=== PATIENT | female | born 1945 | race Two or more races ===

== ENCOUNTER 2017-07-14 06:19 | Day surgery (SDC) | payer OTHER ==
[~2017-07-14] VITALS: Ht 162.6 cm; Wt 53.5 kg
[2017-07-14] VITALS (12 sets, daily range): BP systolic 102–124; BP diastolic 42–76
[~2017-07-14 06:19] MED LIST: LEVOTHYROXINE75 MCG ORAL
[2017-07-14] MEDS ORDERED: NS Irrig 4000ml IRRIG ONE (06:20)
[2017-07-14] MEDS ORDERED: fentaNYL 100 mcg/2 mL IV ONE (06:20)
[2017-07-14] MEDS ORDERED: Sterile Water Irrig 1000ml IRRIG ONE (06:20)
[2017-07-14] MEDS ORDERED: Midazolam 2mg/2ml Inj ONE (06:20)
[2017-07-14] MEDS ORDERED: NS Irrig 1000ml ONE (06:20)
[2017-07-14] MEDS ORDERED: Propofol 200mg/20ml IV ONE (06:20)
[2017-07-14] MEDS ORDERED: celeBREX 200mg Cap **SURGERY PATIENTS ONLY ORAL ONE (08:00)
[2017-07-14] MEDS ORDERED: ceFAZolin 1 GM premix IV ONE (08:00)
[2017-07-14] MEDS ORDERED: oxyCONTIN 20mg tab ORAL ONE (08:00)
--- NOTE | 2017-07-14 08:37 | Pre-Procedure Note/Attestation ---
Pre-Procedure Note/Attestation Complete Prior to Procedure Planned Procedure: left Procedure Narrative: knee diagnostic arthroscopy, possible menisectomy, possible synovectomy Indications for Procedure Pre-Operative Diagnosis: left knee internal derangement Attestation I attest that I discussed the nature of the procedure; its benefits; risks and complications; and alternatives (and the risks and benefits of such alternatives ), prior to the procedure, with the patient (or the patient's legal corporate sales representative). I attest that, if there was a reasonable possibility of needing a blood transfusion, the patient (or the patient's legal corporate sales representative) was given the [facility] standardized written summary, pursuant to the Endy Sara Blood Safety Act ([place] Health and Safety Code # 1645, as amended). I attest that I re-evaluated the patient just prior to the surgery and that there has been no change in the patient's H&P, except as documented below: MONTSERRAT CUEVAS Jul 14, 2017 08:37
[2017-07-14] MEDS ORDERED: Ketorolac 30mg Inj ONE (08:38)
[2017-07-14] MEDS ORDERED: Kenalog-40 1ml Vial ONE (08:38)
[2017-07-14] MEDS ORDERED: Morphine Sulfate PF 10 ML ONE (08:38)
--- NOTE | 2017-07-14 08:38 | Operative Note - PDOC ---
Operative Note Operative Note Pre-op Diagnosis: left knee internal derangement Procedure: left knee arhroscopy, synovectomy, medial menisectomy Post-op Diagnosis: same as pre-op plus Operative Findings: consistent w/pre-op dx studies Anesthesia: MAC Specimen: none Complications: none Condition: stable Estimated Blood Loss: none Implant(s) used?: No MONTSERRAT CUEVAS Jul 14, 2017 08:38
[2017-07-14] MEDS ORDERED: Bupivacaine 0.25% Inj 30ml INJ ONE (08:39)
[2017-07-14] MEDS ORDERED: Lidocaine 1% 10mg/ml/Epi 0.005mg/ml 30ml vial INJ ONE (08:39)
[2017-07-14] MEDS ORDERED: Norco 5mg/325mg tab ORAL PRN (08:45)
[2017-07-14] MEDS ORDERED: Tylenol #3 tab (300mg/30mg) ORAL PRN (08:45)
[2017-07-14] MEDS ORDERED: HYDROmorphone 1mg/ml Carpuject SUBQ PRN (08:45)
[2017-07-14] MEDS ORDERED: D5 1/2NS 1,000 ML IV SCH (08:45)
[2017-07-14] MEDS ORDERED: Duramorph PF 10mg/10ml amp IV ONE (08:55)
--- NOTE | 2017-07-14 09:40 | Anethesia Preoperative Eval ---
Anesthesia Pre-op PMH/ROS General Date of Evaluation: Jul 14, 2017 Time of Evaluation: 08:55 Anesthesiologist: Gabriela ASA Score: ASA 2 Mallampati Score Class I : Soft palate, uvula, fauces, pillars visible Class II: Soft palate, uvula, fauces visible Class III: Soft palate, base of uvula visible Class IV: Only hard plate visible Mallampati Classification: Class II Surgeon: Kenny Diagnosis: L knee pain Surgical Procedure: L knee scope Anesthesia History: none Family History: no anesthesia problems Allergies: Coded Allergies: No Known Allergies (Unverified , 07/14/17) Medications: see eMAR Past Medical History Cardiovascular: Denies: HTN, CAD, [place], valve dz, arrhythmia, other Pulmonary: Denies: asthma, COPD, SHAMEKA, other Gastrointestinal/Genitourinary: Reports: GERD - mild, Denies: CRI, ESRD, other Neurologic/Psychiatric: Denies: dementia, CVA, depression/anxiety, TIA, other Endocrine: Reports: hypothyroidism, Denies: DM, steroids, other HEENT: Denies: cataract (L), cataract (R), glaucoma, VIEJAS (L), VIEJAS (R), other Hematology/Immune: Denies: anemia, DVT, bleeding disorder, other Musculoskeletal/Integumentary: Denies: OA, RA, DJD, DDD, edema, other PMH Narrative: as above PSxH Narrative: none Anesthesia Pre-op Phys. Exam Physician Exam Last Vital Signs Date Time Temp Pulse Resp B/P (MAP) Pulse Ox O2 Delivery O2 Flow Rate FiO2 07/14/17 06:51 98.0 61 17 121/69 98 Room Air Constitutional: NAD Neurologic: CN 2-12 intact Cardiovascular: RRR, no M/R/G Respiratory: CTA Gastrointestinal: S/NT/ND Airway Exam Mallampati Score: Class II MO: full Neck: flexible ROM: full Teeth: intact Dentures: no upper, no lower Anesthesia Pre-op A/P Labs see chart Studies Pre-op Studies: EKG - NSR Risk Assessment & Plan Assessment: ASA 2 Plan: GA with LMA Status Change Before Surgery: No Pre-Antibiotics Drug: Ancef 1 gr. Given Within 1 Hr of Incision: Yes Time Given: 09:20 MILO WING M.D. Jul 14, 2017 09:40
[2017-07-14] MEDS ORDERED: LR 1000ml 1,000 ML IVLG SCH (09:55)
--- NOTE | 2017-07-14 09:55 | Immediate Post-Op Evaluation ---
Immediate Post-Op Evalulation Immediate Post-Op Evalulation Procedure: L knee arthroscopy meniscectomy Date of Evaluation: Jul 14, 2017 Time of Evaluation: 09:54 IV Fluids: 1000 Blood Products: none Estimated Blood Loss: min Urinary Output: none Blood Pressure Systolic: 119 Blood Pressure Diastolic: 58 Pulse Rate: 69 Respiratory Rate: 20 O2 Sat by Pulse Oximetry: 99 Temperature (Fahrenheit): 97.6 Pain Score (1-10): 2 Nausea: No Vomiting: No Complications none Patient Status: awake, patent, none Hydration Status: adequate MILO WING M.D. Jul 14, 2017 09:55
[2017-07-14] MEDS ORDERED: Ketorolac 30mg Inj IV PRN (10:00)
[2017-07-14] MEDS ORDERED: DiphenhydrAMINE 50mg/ml Inj IVP PRN (10:00)
[2017-07-14] MEDS ORDERED: Hydromorphone 0.5mg/0.5ml inj IVP PRN (10:00)
--- NOTE | 2017-07-14 11:42 | 48 Hour Post Anesthesia Eval ---
Post Anesthesia Evaluation Procedure: L knee arthroscopy meniscectomy Date of Evaluation: Jul 14, 2017 Time of Evaluation: 11:41 Blood Pressure Systolic: 124 0: 68 Pulse Rate: 56 Respiratory Rate: 20 Temperature (Fahrenheit): 97.3 O2 Sat by Pulse Oximetry: 99 Airway: patent Nausea: No Vomiting: No Pain Intensity: 2 Hydration Status: adequate Cardiopulmonary Status: stable Mental Status/LOC: patient returned to baseline Follow-up Care/Observations: n/a Post-Anesthesia Complications: none Follow-up care needed: ready to discharge MILO WING M.D. Jul 14, 2017 11:42
--- NOTE | 2017-07-14 15:45 | Operative Note - Dictated ---
DATE OF OPERATION: 07/14/2017 PREOPERATIVE DIAGNOSIS: Left knee internal derangement, possible meniscal pathology with chondral damage. POSTOPERATIVE DIAGNOSES: 1. Left knee medial meniscus tear. 2. Hypertrophic synovial tissue, medial and patellofemoral compartment. PROCEDURES: 1. Left knee arthroscopy with partial medial meniscectomy. 2. Synovectomy, medial and patellofemoral compartments. SURGEON: Mayank Cox M.D. ANESTHESIA: MAC with local. INDICATION OF PROCEDURE: The patient is a pleasant female who has had progressive left knee pain. She failed conservative treatment and elected to undergo left knee arthroscopy and possible meniscectomy and synovectomy. Risks, limitations, expectations, and complications related to procedure were discussed in detail. All questions were addressed. DESCRIPTION OF PROCEDURE: An informed consent was obtained. The patient was brought into the operating room and placed supine under monitored anesthesia control. Under sterile conditions, 20 mL of Marcaine was injected into the left knee. The left knee was prepped and draped in a sterile manner. Time-out was performed. An inferolateral stab incision was then made. Trocar was introduced into the knee joint. No significant chondral damage in the patellofemoral compartment. There was hypertrophic synovial tissue in the retropatellar space area. Medial portal was entered. There was a tear of the posterior horn, medial meniscus. Partial meniscectomy using combination of biters and anderson was performed. Once that was done, the synovectomy in the medial intercondylar notch was completed to better visualize the ACL and lateral compartment. ACL was probed and noted to be intact. Lateral compartment was entered, free of meniscal chondral damage. Camera was repositioned in the patellofemoral compartment. Synovectomy was completed. Once that was done, the instruments were removed. Portal sites were closed using 3-0 Monocryl sutures. Steri-Strips and a sterile dressing were applied. The patient was awoken and taken recovery room with stable signs. ESTIMATED BLOOD LOSS: None. COMPLICATIONS: None. SPECIMENS: None. IMPLANTS: None. Mayank Cxo M.D. DR: NEMO JOB#: [id number] CC: JOAQUINA
== END 2017-07-14 11:45 | disposition home or self-care (01) ==
LOC: SDS 06:19
DX: S83.241A Other tear of medial meniscus, current injury, right knee, initial encounter (principal); M67.261 Synovial hypertrophy, not elsewhere classified, right lower leg; K21.9 Gastro-esophageal reflux disease without esophagitis; X58.XXXA Exposure to other specified factors, initial encounter; Y93.9 Activity, unspecified; Y92.9 Unspecified place or not applicable; E03.9 Hypothyroidism, unspecified
CPT/HCPCS: 29876; 29881; 97161; G8978; G8979; G8980; J0690; J1885; J2250; J2274; J2704; J3010; J3301; J3490; 94003; 94150